=== PATIENT | male | born 1965 | race Caucasian/White ===

== ENCOUNTER → 2016-06-26 | Outpatient (CLI) | payer OTHER ==
--- NOTE | ~2016-06-26 | US77 ---
[facility] A Service of [facility] & [facility] / [facility] RADIOLOGY TEXT RESULTS PATIENT: LINDA ALMAGUER LOCATION: [facility] : 61 UNIT #: [id number] AGE: [address]: Nadege Lennon MD SEX: M ORDER DR: [id number] [facility] [address] [place], [place] [address] [id number] O MR#: [id number] Acc #: [id number] NAME: LINDA ALMAGUER : 1965 SEX: M STUDY DATE/TIME: 06/26/2016 15:13 UNIT: [facility] ROOM: STUDY DESCRIPTION: US Kidney Bilateral Complete Attending Physician: Belkis Lennon M.D. Referring Physician: Belkis Lennon M.D. Ordering Physician: Belkis Lennon M.D. Primary Care Physician: Kvng Franks M.D. MEDICAL IMAGING REPORT This report is preliminary unless electronic signature is present EXAM Renal ultrasound, 06/26/2016. HISTORY Proteinuria, glomerular disease diagnosed 1 week ago on laboratory findings. FINDINGS The right kidney measures 13 cm while the left kidney measures 12.8 cm in longitudinal dimensions. There is no evidence of hydronephrosis or nephrolithiasis. No cystic or solid mass lesions were seen on either kidney. There is normal renal cortical echogenicity. Images of the bladder are normal. IMPRESSION 1. Negative renal ultrasound. 2. Images of the bladder are normal. Dictated by... Abhinav Gonzales M.D. THIS IS AN ELECTRONICALLY VERIFIED REPORT Abhinav Gonzales M.D. at 06/27/2016 3:25 PM KRT/rj TD: 06/27/2016 10:56 JOB #: [id number] MEDICAL IMAGING REPORT COPY
== END | disposition home or self-care (01) ==
LOC: CGUS 14:45
DX: N05.9 Unspecified nephritic syndrome with unspecified morphologic changes (principal)
CPT/HCPCS: 76770

== ENCOUNTER → 2016-10-07 | Outpatient (CLI) | payer OTHER ==
[2016-10-09 06:07] LABS: COMPLEMENT C3 119 mg/dL (90-180); COMPLEMENT C4 29 mg/dL (16-47)
[2016-10-10 15:23] LABS: ANA SCREEN Negative (Negative); MYELOPEROXIDASE AB (PNL) <1.0 AI (<1.0); PROTEINASE-3 AB (PNL) <1.0 AI (<1.0)
== END | disposition home or self-care (01) ==
LOC: CLAB 10:37
PROVIDERS: Internal Medicine Nephrology
DX: R31.9 Hematuria, unspecified (principal); R80.9 Proteinuria, unspecified
CPT/HCPCS: 36415; 84550; 86021; 86038; 86039; 86160; 86334; 86335